=== PATIENT | female | born 1985 | race Caucasian/White ===

== ENCOUNTER 2018-08-17 14:57 | Emergency (ER) | payer OTHER ==
[~2018-08-17] VITALS: Ht 157.5 cm; Wt 74.8 kg
[~2018-08-17 14:57] MED LIST: COLACE100 MG PO; Mylicon 125MG PO; OXYC1TAB9 PO
[2018-08-17] MEDS ORDERED: CLARITIN10 M1 (15:14)
[2018-08-17] MEDS ORDERED: GILTUSS COUGH-118 ML (15:15)
[2018-08-17] MEDS ORDERED: PREMPRO 0.3 MG1 EACH (15:15)
[2018-08-17] MEDS ORDERED: SINGULAIR10 MG (15:15)
[2018-08-17] MEDS ORDERED: CABERGOLINE0.5 MG (15:16)
== END 2018-08-17 17:40 | disposition home or self-care (01) ==
LOC: ER 14:57
DX: J06.9 Acute upper respiratory infection, unspecified (principal)